=== PATIENT | male | born 1960 | race Caucasian/White ===

== ENCOUNTER → 2017-10-19 | Outpatient (CLI) | payer BC | LOC: CIMAGING 07:18 | PROVIDERS: ATTEND Family Medicine | DX: K76.0 Fatty (change of) liver, not elsewhere classified (principal); F41.9 Anxiety disorder, unspecified | CPT/HCPCS: 76705-PO ==

== ENCOUNTER → 2017-11-07 | Outpatient (CLI) | payer BC | LOC: FIMAGING 10:56 | PROVIDERS: ATTEND Family Medicine | DX: R10.11 Right upper quadrant pain (principal) | CPT/HCPCS: A9537 ==